=== PATIENT | male | born 1950 | race Caucasian/White ===

== ENCOUNTER 2024-02-01 12:50 | Inpatient (IN) | payer MEDICARE, OTHER ==
[~2024-02-01] VITALS: Ht 182.9 cm; Wt 99.8 kg
[~2024-02-01 12:50] MED LIST: ALLOPURINOL100 MG PO; AMIODARONE HCL200 MG PO; ASPIRIN325 MG PO; ATORVASTATIN CA20 MG PO; CARVEDILOL3.125 MG PO; FISH OIL 1,0001 EAC7; FUROSEMIDE40 MG PO; LEVOTHYROXINE100 MC1 IV; LOSARTAN POTASS25 MG PO; RAYALDEE30 MCG PO
[2024-02-01] MEDS ORDERED: SODIUM CHLORIDE FLUSH 10 ML SYR IV PRN (13:15)
[2024-02-01 14:09] VITALS: TEMP 98.1
[2024-02-01 14:17] LABS: BASOPHILS # (AUTO) 0.1 (0.0-0.1); BASOPHILS % 0.3 % (0.0-1.0); EOSINOPHILS % 2.7 % (0.0-6.0); HEMATOCRIT 33.5 % (38.2-49.6); LYMPHOCYTES # (AUTO) 1.7 (1.0-3.2); LYMPHOCYTES % 4.6 % (18.0-39.1); MEAN CORPUSCULAR HEMOGLOBIN 28.1 pg (28-32); MEAN CORPUSCULAR HGB CONC 32.8 g/dL (31-35); MEAN CORPUSCULAR VOLUME 85.5 fL (81-99); MONOCYTES # (AUTO) 0.1 (0.2-0.8); MONOCYTES % 0.3 % (4.4-11.3); NEUTROPHILS # (AUTO) 30.1 (2.1-6.9); NEUTROPHILS % 81.7 % (38.7-80.0); PLATELET COUNT 200 x10e3/uL (140-360); RED BLOOD COUNT 3.92 x10e6/uL (4.3-5.7); RED CELL DISTRIBUTION WIDTH 18.4 % (11.7-14.4); WHITE BLOOD COUNT 36.86 x10e3/uL (4.8-10.8)
[2024-02-01 14:30] LABS: ALBUMIN 2.3 g/dL (3.5-5.0); ALBUMIN/GLOBULIN RATIO 0.4 (0.8-2.0); ANION GAP 15.7 mmol/L (8-16); BILIRUBIN,TOTAL 0.8 mg/dL (0.2-1.2); CALCIUM 8.3 mg/dL (8.4-10.2); CREATININE, SERUM 0.91 mg/dL (0.72-1.25); POTASSIUM 3.7 mmol/L (3.5-5.1); TOTAL PROTEIN 7.9 g/dL (6.5-8.1)
[2024-02-01 14:36] LABS: TROPONIN I 0.145 ng/mL (0-0.300)
[2024-02-01 15:30] LABS: EOSINOPHILS % (MANUAL) 6 % (0-7); LYMPHOCYTES % (MANUAL) 3 % (19-48); MONOCYTES % (MANUAL) 1 % (3.4-9.0); NEUTROPHILS % (MANUAL) 90 % (40-74); PLATELET ESTIMATE ADEQUATE; PLATELET MORPHOLOGY COMMENT NORMAL; RBC MORPHOLOGY COMMENT NORMAL
[2024-02-01] MEDS ORDERED: IOPAMIDOL 370 MG/ML 100 ML INFUS..BTL INJ ONE (16:37)
[2024-02-01 16:53] VITALS: PULSE 71; RESP 16
[2024-02-01] MEDS ORDERED: ONDANSETRON HCL INJ 2MG/ML 2ML 2 MG/ML VIAL IV PRN (17:45)
[2024-02-01] MEDS ORDERED: SODIUM CHLORIDE FLUSH 10 ML SYR INJ PRN (17:45)
[2024-02-01] MEDS: CEFEPIME 2 GM in SODIUM CHLORIDE 0.9% 100 ML IV SCH (17:51)
[2024-02-01 19:53] VITALS: BP 100/47; O2SAT 94
[2024-02-01] MEDS ORDERED: FOLIC ACID0.4 MG PO (20:02)
[2024-02-01] MEDS ORDERED: IPRAT-ALBUT 0.5-3 ML (20:02)
[2024-02-01] MEDS ORDERED: ELIQUIS5 MG PO (20:02)
[2024-02-01] MEDS ORDERED: PANTOPRAZOLE SO40 MG PO (20:02)
[2024-02-01] MEDS ORDERED: Vancomycin IV 1 GM VIAL ONE (20:09)
[2024-02-01] MEDS: Vancomycin IV 1 GM in SODIUM CHLORIDE 0.9% 250ML 250 ML IV SCH (20:36)
[2024-02-01 21:05] VITALS: BP 107/59; PULSE 72; RESP 18; TEMP 97.8; O2SAT 93
[2024-02-02] VITALS (12 sets, daily range): BP systolic 109–120; BP diastolic 48–55; PULSE 69–77; RESP 18–22; TEMP 97.6–98.2; O2SAT 92–100
[2024-02-02] MEDS ORDERED: SILVADENE20 GM TOP (02:22)
[2024-02-02] MEDS ORDERED: FLANDERS BUTTOC30 GM TOP (02:22)
[2024-02-02 07:39] LABS: BASOPHILS % 0.1 % (0.0-1.0); EOSINOPHILS # (AUTO) 1.5 (0.0-0.4); EOSINOPHILS % 9.6 % (0.0-6.0); HEMATOCRIT 29.7 % (38.2-49.6); HEMOGLOBIN 9.2 g/dL (14.0-18.0); LYMPHOCYTES # (AUTO) 0.8 (1.0-3.2); MEAN CORPUSCULAR HEMOGLOBIN 27.3 pg (28-32); MEAN CORPUSCULAR VOLUME 88.1 fL (81-99); MONOCYTES # (AUTO) 0.1 (0.2-0.8); MONOCYTES % 0.6 % (4.4-11.3); NEUTROPHILS # (AUTO) 10.9 (2.1-6.9); NEUTROPHILS % 68.9 % (38.7-80.0); PLATELET COUNT 102 x10e3/uL (140-360); RED BLOOD COUNT 3.37 x10e6/uL (4.3-5.7); WHITE BLOOD COUNT 15.87 x10e3/uL (4.8-10.8)
[2024-02-02 08:01] LABS: ALBUMIN 1.8 g/dL (3.5-5.0); ALBUMIN/GLOBULIN RATIO 0.4 (0.8-2.0); ANION GAP 12.4 mmol/L (8-16); BILIRUBIN,TOTAL 0.8 mg/dL (0.2-1.2); CALCIUM 7.5 mg/dL (8.4-10.2); CREATININE, SERUM 0.85 mg/dL (0.72-1.25); TOTAL PROTEIN 6.3 g/dL (6.5-8.1)
[2024-02-02 08:05] LABS: POTASSIUM 3.4 mmol/L (3.5-5.1)
[2024-02-02] MEDS: Vancomycin IV 1 GM in SODIUM CHLORIDE 0.9% 250ML 250 ML IV SCH (09:02)
[2024-02-02 09:41] LABS: INR 1.26; PROTHROMBIN TIME 16.6 seconds (11.9-14.5)
[2024-02-02] MEDS: ALBUTEROL/IPRATROPIUM 3 ML NEB NEB SCH (13:00)
[2024-02-02] MEDS: ALLOPURINOL 100 MG TAB PO SCH (16:36)
[2024-02-02] MEDS: CARVEDILOL 3.125 MG TAB PO SCH (16:37)
[2024-02-02 16:46] LABS: WBC,BODY FLUID 540 cells/uL
[2024-02-02 16:47] LABS: RBC,BODY FLUID 4000 cells/uL
[2024-02-02 18:05] LABS: BODY FLUID APPEARANCE CLOUDY; BODY FLUID COLOR YELLOW; BODY FLUID TYPE PLEURAL
[2024-02-02 18:07] LABS: LYMPHOCYTES,BODY FLUID 90 %; MONO/MACROPHG,BODY FLUID 4 %; NEUTROPHILS,BODY FLUID 4 %; OTHER CELLS,BODY FLUID 2 %; TOTAL CELLS COUNTED (DIFF) 100
[2024-02-02] MEDS ORDERED: SODIUM CHLORIDE 0.9% 100 ML ONE (20:15)
[2024-02-02] MEDS: ATORVASTATIN 40 MG TAB PO SCH (21:02)
[2024-02-03] VITALS (11 sets, daily range): BP systolic 104–119; BP diastolic 52–63; PULSE 66–98; RESP 10–22; TEMP 97.3–98.1; O2SAT 94–98
[2024-02-03 05:39] LABS: ANION GAP 13.4 mmol/L (8-16); CALCIUM 7.4 mg/dL (8.4-10.2); CREATININE, SERUM 0.8 mg/dL (0.72-1.25)
[2024-02-03] MEDS: LEVOTHYROXINE SODIUM 100 MCG TAB PO SCH (05:42)
[2024-02-03 05:55] LABS: POTASSIUM 3.4 mmol/L (3.5-5.1)
[2024-02-03 06:43] LABS: BASOPHILS % 0.3 % (0.0-1.0); EOSINOPHILS # (AUTO) 1.3 (0.0-0.4); EOSINOPHILS % 21.4 % (0.0-6.0); HEMATOCRIT 27.8 % (38.2-49.6); LYMPHOCYTES # (AUTO) 0.5 (1.0-3.2); LYMPHOCYTES % 8.2 % (18.0-39.1); MEAN CORPUSCULAR HEMOGLOBIN 27.5 pg (28-32); MEAN CORPUSCULAR HGB CONC 31.3 g/dL (31-35); MONOCYTES # (AUTO) 0.1 (0.2-0.8); NEUTROPHILS # (AUTO) 2.3 (2.1-6.9); NEUTROPHILS % 37.1 % (38.7-80.0); RED BLOOD COUNT 3.16 x10e6/uL (4.3-5.7)
[2024-02-03 06:50] LABS: PLATELET COUNT 42 x10e3/uL (140-360)
[2024-02-03 06:51] LABS: HEMOGLOBIN 8.7 g/dL (14.0-18.0); WHITE BLOOD COUNT 6.07 x10e3/uL (4.8-10.8)
[2024-02-03] MEDS: AMIODARONE HCL 200 MG TAB PO SCH (08:56)
[2024-02-03 09:50] LABS: EOSINOPHILS % (MANUAL) 24 % (0-7); LYMPHOCYTES % (MANUAL) 7 % (19-48); MONOCYTES % (MANUAL) 2 % (3.4-9.0); NEUTROPHILS % (MANUAL) 67 % (40-74); PLATELET ESTIMATE MARKEDLY DECREASED; PLATELET MORPHOLOGY COMMENT NORMAL; RBC MORPHOLOGY COMMENT NORMAL
[2024-02-03 09:51] LABS: ANISOCYTOSIS SLIGHT; HYPOCHROMASIA SLIGHT
[2024-02-03 12:15] LABS: HEMATOCRIT 30.3 % (38.2-49.6); HEMOGLOBIN 9.5 g/dL (14.0-18.0); MEAN CORPUSCULAR HEMOGLOBIN 27.8 pg (28-32); MEAN CORPUSCULAR HGB CONC 31.4 g/dL (31-35); MEAN CORPUSCULAR VOLUME 88.6 fL (81-99); PLATELET COUNT 38 x10e3/uL (140-360); RED BLOOD COUNT 3.42 x10e6/uL (4.3-5.7); WHITE BLOOD COUNT 5.07 x10e3/uL (4.8-10.8)
[2024-02-03] MEDS: POTASSIUM CHLORIDE 10MEQ EA PO ONE (12:48)
[2024-02-03] MEDS ORDERED: ONDANSETRON HCL 4 MG ORAL DISINTEGRATING TAB PO PRN (13:30)
[2024-02-03 14:10] LABS: FERRITIN 2752.84 ng/mL (21.81-274.66)
[2024-02-03 16:23] LABS: BASOPHILS % (MANUAL) 1 % (0-1.5); EOSINOPHILS % (MANUAL) 27 % (0-7); LYMPHOCYTES % (MANUAL) 7 % (19-48); MONOCYTES % (MANUAL) 1 % (3.4-9.0); NEUTROPHILS % (MANUAL) 64 % (40-74)
[2024-02-03 16:24] LABS: ANISOCYTOSIS SLIGHT; HYPOCHROMASIA SLIGHT; PLATELET ESTIMATE MARKEDLY DECREASED; PLATELET MORPHOLOGY COMMENT NORMAL
[2024-02-03 16:26] LABS: RBC MORPHOLOGY COMMENT NORMAL
[2024-02-03] MEDS: METHYLPREDNISOLONE SOD SUCC 125 MG/2ML VIAL IV SCH (18:01)
[2024-02-03] MEDS: SACUBITRIL/VALSARTAN 24MG/26MG 1 EA TAB PO SCH (20:39)
[2024-02-03] MEDS: ALPRAZOLAM 0.25 MG TAB PO PRN (20:39)
[2024-02-04] VITALS (11 sets, daily range): BP systolic 96–114; BP diastolic 47–61; PULSE 67–100; RESP 15–25; TEMP 97.3–98.3; O2SAT 92–99
[2024-02-04 05:59] LABS: BASOPHILS % 0.6 % (0.0-1.0); EOSINOPHILS % 0.6 % (0.0-6.0); HEMOGLOBIN 8.6 g/dL (14.0-18.0); LYMPHOCYTES # (AUTO) 0.3 (1.0-3.2); LYMPHOCYTES % 15.6 % (18.0-39.1); MEAN CORPUSCULAR HEMOGLOBIN 27.3 pg (28-32); MEAN CORPUSCULAR HGB CONC 30.7 g/dL (31-35); MEAN CORPUSCULAR VOLUME 88.9 fL (81-99); MONOCYTES % 1.7 % (4.4-11.3); NEUTROPHILS # (AUTO) 0.4 (2.1-6.9); NEUTROPHILS % 19.3 % (38.7-80.0); RED BLOOD COUNT 3.15 x10e6/uL (4.3-5.7); RED CELL DISTRIBUTION WIDTH 17.8 % (11.7-14.4)
[2024-02-04 06:32] LABS: PLATELET COUNT 23 x10e3/uL (140-360)
[2024-02-04 06:42] LABS: ANION GAP 12.1 mmol/L (8-16); CALCIUM 7.7 mg/dL (8.4-10.2); CREATININE, SERUM 0.77 mg/dL (0.72-1.25); POTASSIUM 4.1 mmol/L (3.5-5.1)
[2024-02-04 09:13] LABS: HEPATITIS B SURFACE AG (P) NONREACTIVE; HEPATITIS C ANTIBODY NONREACTIVE
[2024-02-04] MEDS: EPOETIN ALFA-EPBX 10,000 UNIT/ML VIAL SC ONE (11:51)
[2024-02-05] VITALS (15 sets, daily range): BP systolic 98–172; BP diastolic 44–71; PULSE 68–115; RESP 17–23; TEMP 97.3–98.1; O2SAT 88–100
[2024-02-05 11:00] LABS: BASOPHILS % 0.5 % (0.0-1.0); EOSINOPHILS # (AUTO) 0.1 (0.0-0.4); EOSINOPHILS % 4.3 % (0.0-6.0); HEMATOCRIT 28.1 % (38.2-49.6); HEMOGLOBIN 8.8 g/dL (14.0-18.0); LYMPHOCYTES # (AUTO) 0.5 (1.0-3.2); LYMPHOCYTES % 25.1 % (18.0-39.1); MEAN CORPUSCULAR HEMOGLOBIN 27.8 pg (28-32); MEAN CORPUSCULAR HGB CONC 31.3 g/dL (31-35); MEAN CORPUSCULAR VOLUME 88.9 fL (81-99); MONOCYTES # (AUTO) 0.1 (0.2-0.8); MONOCYTES % 4.3 % (4.4-11.3); NEUTROPHILS # (AUTO) 1.2 (2.1-6.9); NEUTROPHILS % 57.6 % (38.7-80.0); RED BLOOD COUNT 3.16 x10e6/uL (4.3-5.7); RED CELL DISTRIBUTION WIDTH 17.9 % (11.7-14.4); WHITE BLOOD COUNT 2.07 x10e3/uL (4.8-10.8)
[2024-02-05 11:03] LABS: PLATELET COUNT 12 x10e3/uL (140-360)
[2024-02-05 12:58] LABS: EOSINOPHILS % (MANUAL) 1 % (0-7); LYMPHOCYTES % (MANUAL) 65 % (19-48); NEUTROPHILS % (MANUAL) 34 % (40-74)
[2024-02-05 12:59] LABS: PLATELET ESTIMATE MARKEDLY DECREASED; PLATELET MORPHOLOGY COMMENT NORMAL; RBC MORPHOLOGY COMMENT NORMAL
[2024-02-05 19:27] LABS: ABG HCO3 20 mmol/L (22-26); ABG PCO2 42 mmHg (35-45); ABG PH 7.28 (7.35-7.45); ABG PO2 125 mmHg (80-105); ABG TCO2 21
[2024-02-05] MEDS: FUROSEMIDE INJ 10 MG/ML 4 ML VIAL IV ONE (19:50)
[2024-02-06] VITALS (39 sets, daily range): BP systolic 95–126; BP diastolic 47–96; PULSE 64–85; RESP 16–33; TEMP 97.5–98.3; O2SAT 87–100
[2024-02-06 07:16] LABS: EOSINOPHILS % 0.9 % (0.0-6.0); HEMATOCRIT 25.1 % (38.2-49.6); HEMOGLOBIN 7.7 g/dL (14.0-18.0); LYMPHOCYTES # (AUTO) 0.9 (1.0-3.2); LYMPHOCYTES % 37.9 % (18.0-39.1); MEAN CORPUSCULAR HGB CONC 30.7 g/dL (31-35); MEAN CORPUSCULAR VOLUME 88.1 fL (81-99); MONOCYTES # (AUTO) 0.2 (0.2-0.8); MONOCYTES % 8.5 % (4.4-11.3); NEUTROPHILS % 41.2 % (38.7-80.0); PLATELET COUNT 37 x10e3/uL (140-360); RED BLOOD COUNT 2.85 x10e6/uL (4.3-5.7); RED CELL DISTRIBUTION WIDTH 17.4 % (11.7-14.4); WHITE BLOOD COUNT 2.35 x10e3/uL (4.8-10.8)
[2024-02-06 07:28] LABS: ALBUMIN 1.7 g/dL (3.5-5.0); ALBUMIN/GLOBULIN RATIO 0.4 (0.8-2.0); ANION GAP 11.6 mmol/L (8-16); BILIRUBIN,TOTAL 0.7 mg/dL (0.2-1.2); CALCIUM 7.5 mg/dL (8.4-10.2); CREATININE, SERUM 0.79 mg/dL (0.72-1.25); POTASSIUM 3.6 mmol/L (3.5-5.1); TOTAL PROTEIN 5.7 g/dL (6.5-8.1)
[2024-02-06] MEDS: GUAIFENESIN 600 MG TAB PO PRN (09:42)
[2024-02-06] MEDS: BALSAM PERU/CASTOR OIL 60 GM OINT...G. TP SCH (09:44)
[2024-02-06] MEDS: FUROSEMIDE INJ 10 MG/ML 4 ML VIAL IV SCH (09:45)
[2024-02-06 09:50] LABS: EOSINOPHILS % (MANUAL) 1 % (0-7); LYMPHOCYTES % (MANUAL) 31 % (19-48); MONOCYTES % (MANUAL) 9 % (3.4-9.0); NEUTROPHILS % (MANUAL) 59 % (40-74)
[2024-02-06 09:51] LABS: HYPOCHROMASIA SLIGHT; PLATELET ESTIMATE MARKEDLY DECREASED; PLATELET MORPHOLOGY COMMENT NORMAL; RBC MORPHOLOGY COMMENT NORMAL
[2024-02-06 09:53] LABS: TOXIC GRANULATION MODERATE
[2024-02-06 10:54] LABS: TOTAL PROTEIN,BODY FLUID 3.1 g/dL
[2024-02-06] MEDS: FILGRASTIM-AAFI 480 MCG/0.8 ML SYRINGE SQ ONE (13:33)
[2024-02-07] VITALS (35 sets, daily range): BP systolic 94–118; BP diastolic 43–64; PULSE 65–86; RESP 15–31; TEMP 97.8–98.2; O2SAT 93–100
[2024-02-07 08:36] LABS: BASOPHILS % 0.7 % (0.0-1.0); EOSINOPHILS # (AUTO) 0.1 (0.0-0.4); EOSINOPHILS % 1.3 % (0.0-6.0); HEMOGLOBIN 8.5 g/dL (14.0-18.0); LYMPHOCYTES # (AUTO) 1.1 (1.0-3.2); LYMPHOCYTES % 24.7 % (18.0-39.1); MEAN CORPUSCULAR HEMOGLOBIN 27.3 pg (28-32); MEAN CORPUSCULAR HGB CONC 31.5 g/dL (31-35); MEAN CORPUSCULAR VOLUME 86.8 fL (81-99); MONOCYTES # (AUTO) 0.4 (0.2-0.8); MONOCYTES % 7.8 % (4.4-11.3); NEUTROPHILS # (AUTO) 2.8 (2.1-6.9); NEUTROPHILS % 63.7 % (38.7-80.0); RED BLOOD COUNT 3.11 x10e6/uL (4.3-5.7); RED CELL DISTRIBUTION WIDTH 17.8 % (11.7-14.4); WHITE BLOOD COUNT 4.46 x10e3/uL (4.8-10.8)
[2024-02-07 08:44] LABS: PLATELET COUNT 14 x10e3/uL (140-360)
[2024-02-07] MEDS: PREDNISONE 20 MG TAB PO SCH (08:57)
[2024-02-07 09:01] LABS: ALBUMIN 1.9 g/dL (3.5-5.0); ALBUMIN/GLOBULIN RATIO 0.5 (0.8-2.0); ANION GAP 14.3 mmol/L (8-16); BILIRUBIN,TOTAL 0.9 mg/dL (0.2-1.2); CALCIUM 7.9 mg/dL (8.4-10.2); CREATININE, SERUM 0.72 mg/dL (0.72-1.25); TOTAL PROTEIN 5.8 g/dL (6.5-8.1)
[2024-02-07 09:06] LABS: POTASSIUM 3.3 mmol/L (3.5-5.1)
[2024-02-07] MEDS: POTASSIUM CHLORIDE 20MEQ/100ML 200 ML IV ONE (10:31)
[2024-02-07 12:08] LABS: EOSINOPHILS % (MANUAL) 2 % (0-7); LYMPHOCYTES % (MANUAL) 39 % (19-48); MONOCYTES % (MANUAL) 9 % (3.4-9.0); NEUTROPHILS % (MANUAL) 50 % (40-74); PLATELET ESTIMATE MARKEDLY DECREASED; PLATELET MORPHOLOGY COMMENT NORMAL; RBC MORPHOLOGY COMMENT NORMAL
[2024-02-08] VITALS (37 sets, daily range): BP systolic 96–126; BP diastolic 47–73; PULSE 64–89; RESP 15–28; TEMP 97–98.4; O2SAT 90–100
[2024-02-08 06:55] LABS: BASOPHILS % 0.4 % (0.0-1.0); EOSINOPHILS # (AUTO) 0.3 (0.0-0.4); EOSINOPHILS % 4.9 % (0.0-6.0); HEMATOCRIT 23.7 % (38.2-49.6); HEMOGLOBIN 7.7 g/dL (14.0-18.0); LYMPHOCYTES # (AUTO) 1.4 (1.0-3.2); LYMPHOCYTES % 20.8 % (18.0-39.1); MEAN CORPUSCULAR HEMOGLOBIN 28.2 pg (28-32); MEAN CORPUSCULAR HGB CONC 32.5 g/dL (31-35); MEAN CORPUSCULAR VOLUME 86.8 fL (81-99); MONOCYTES # (AUTO) 0.3 (0.2-0.8); MONOCYTES % 3.9 % (4.4-11.3); NEUTROPHILS # (AUTO) 4.7 (2.1-6.9); NEUTROPHILS % 68.7 % (38.7-80.0); RED BLOOD COUNT 2.73 x10e6/uL (4.3-5.7); RED CELL DISTRIBUTION WIDTH 17.7 % (11.7-14.4); WHITE BLOOD COUNT 6.88 x10e3/uL (4.8-10.8)
[2024-02-08 07:01] LABS: PLATELET COUNT 23 x10e3/uL (140-360)
[2024-02-08 07:17] LABS: ALBUMIN 1.8 g/dL (3.5-5.0); ALBUMIN/GLOBULIN RATIO 0.5 (0.8-2.0); ANION GAP 12.5 mmol/L (8-16); BILIRUBIN,TOTAL 0.8 mg/dL (0.2-1.2); CALCIUM 7.8 mg/dL (8.4-10.2); CREATININE, SERUM 0.64 mg/dL (0.72-1.25); POTASSIUM 3.5 mmol/L (3.5-5.1); TOTAL PROTEIN 5.7 g/dL (6.5-8.1)
[2024-02-08] MEDS: FUROSEMIDE INJ 10 MG/ML 4 ML VIAL IV SCH (10:01)
[2024-02-08] MEDS ORDERED: SUCCINYLCHOLINE CHLORIDE 20 MG/ML 10ML VIAL ONE (12:33)
[2024-02-08] MEDS ORDERED: ETOMIDATE 2 MG/ML 10 ML INJ IV ONE (12:33)
[2024-02-08] MEDS ORDERED: SODIUM CHLORIDE 0.9% 250ML 250 ML ONE (13:52)
[2024-02-08 14:00] LABS: BAND NEUTROPHILS % (MANUAL) 5 %; EOSINOPHILS % (MANUAL) 3 % (0-7); LYMPHOCYTES % (MANUAL) 29 % (19-48); MONOCYTES % (MANUAL) 3 % (3.4-9.0); NEUTROPHILS % (MANUAL) 58 % (40-74); PLATELET MORPHOLOGY COMMENT NORMAL; REACTIVE LYMPHOCYTES 2
[2024-02-08 14:01] LABS: PLATELET ESTIMATE MARKEDLY DECREASED
[2024-02-08 14:02] LABS: HYPOCHROMASIA SLIGHT; RBC MORPHOLOGY COMMENT NORMAL
[2024-02-08 14:03] LABS: ANISOCYTOSIS SLIGHT
[2024-02-08] MEDS: FUROSEMIDE INJ 10 MG/ML 2 ML VIAL IV PRN (16:55)
[2024-02-08] MEDS: SODIUM CHLORIDE 0.9% 250ML 250 ML ONE (17:46)
[2024-02-08] MEDS: SODIUM CHLORIDE 0.9% 250ML 250 ML IV ONE (17:47)
[2024-02-08] MEDS: GUAIFENESIN/CODEINE 5 ML LIQD PO PRN (20:31)
[2024-02-09] VITALS (67 sets, daily range): BP systolic 82–163; BP diastolic 30–87; PULSE 62–105; RESP 15–34; TEMP 97.9–98.7; O2SAT 82–100
[2024-02-09] MEDS: ALBUTEROL/IPRATROPIUM 3 ML NEB NEB PRN (04:50)
[2024-02-09] MEDS: FUROSEMIDE INJ 10 MG/ML 4 ML VIAL IV ONE (05:10)
[2024-02-09 05:32] LABS: BASOPHILS # (AUTO) 0.1 (0.0-0.1); BASOPHILS % 0.5 % (0.0-1.0); EOSINOPHILS # (AUTO) 1.3 (0.0-0.4); EOSINOPHILS % 7.4 % (0.0-6.0); HEMATOCRIT 30.2 % (38.2-49.6); HEMOGLOBIN 9.7 g/dL (14.0-18.0); LYMPHOCYTES # (AUTO) 5.3 (1.0-3.2); LYMPHOCYTES % 29.7 % (18.0-39.1); MEAN CORPUSCULAR HEMOGLOBIN 28.3 pg (28-32); MEAN CORPUSCULAR HGB CONC 32.1 g/dL (31-35); MONOCYTES # (AUTO) 0.6 (0.2-0.8); MONOCYTES % 3.3 % (4.4-11.3); NEUTROPHILS % 56.4 % (38.7-80.0); PLATELET COUNT 17 x10e3/uL (140-360); RED BLOOD COUNT 3.43 x10e6/uL (4.3-5.7); RED CELL DISTRIBUTION WIDTH 17.2 % (11.7-14.4); WHITE BLOOD COUNT 17.67 x10e3/uL (4.8-10.8)
[2024-02-09] MEDS: HYDROCODONE/APAP 10MG-325MG TAB PO PRN (05:45)
[2024-02-09 05:49] LABS: ALBUMIN 1.9 g/dL (3.5-5.0); ALBUMIN/GLOBULIN RATIO 0.4 (0.8-2.0); ANION GAP 14.7 mmol/L (8-16); CALCIUM 7.9 mg/dL (8.4-10.2); CREATININE, SERUM 0.82 mg/dL (0.72-1.25); POTASSIUM 3.7 mmol/L (3.5-5.1); TOTAL PROTEIN 6.2 g/dL (6.5-8.1)
[2024-02-09 06:07] LABS: ABG HCO3 27 mmol/L (22-26); ABG PCO2 53 mmHg (35-45); ABG PH 7.31 (7.35-7.45); ABG PO2 45 mmHg (80-105); ABG TCO2 29
[2024-02-09 06:26] LABS: BAND NEUTROPHILS % (MANUAL) 1 %; EOSINOPHILS % (MANUAL) 5 % (0-7); LYMPHOCYTES % (MANUAL) 34 % (19-48); METAMYELOCYTES % (MANUAL) 2 % (0-0); MONOCYTES % (MANUAL) 1 % (3.4-9.0); NEUTROPHILS % (MANUAL) 57 % (40-74)
[2024-02-09 06:27] LABS: ANISOCYTOSIS SLIGHT; PLATELET ESTIMATE MARKEDLY DECREASED; PLATELET MORPHOLOGY COMMENT NORMAL; RBC MORPHOLOGY COMMENT NORMAL; TOXIC GRANULATION SLIGHT
[2024-02-09] MEDS: PROPOFOL IV EMULSION 10MG/ML 100 ML IV PRN (06:40)
[2024-02-09] MEDS: LORAZEPAM INJ 2 MG/ML VIAL IV ONE (08:17)
[2024-02-09 09:36] LABS: ABG HCO3 29 mmol/L (22-26); ABG PCO2 50 mmHg (35-45); ABG PH 7.37 (7.35-7.45); ABG PO2 126 mmHg (80-105); ABG TCO2 30
[2024-02-09] MEDS: ALBUMIN 25% 25GM 100ML 0.25 GM/ML BTL IV ONE (10:02)
[2024-02-09] MEDS: SODIUM CHLORIDE 0.9% 500ML 500 ML ONE (10:47)
[2024-02-09] MEDS: NOREPINEPHRINE 8 MG/D5W 250 ML 250 ML IV ONE (10:57)
[2024-02-09] MEDS: LACTATED RINGER'S 1,000 ML INJ ONE (16:08)
[2024-02-09] MEDS: NOREPINEPHRINE 8 MG/D5W 250 ML 250 ML IV PRN (16:09)
[2024-02-10] VITALS (94 sets, daily range): BP systolic 103–156; BP diastolic 31–86; PULSE 58–101; RESP 12–32; TEMP 97.1–97.8; O2SAT 97–100
[2024-02-10 07:05] LABS: BASOPHILS % 0.2 % (0.0-1.0); EOSINOPHILS # (AUTO) 1.8 (0.0-0.4); EOSINOPHILS % 11.2 % (0.0-6.0); HEMATOCRIT 24.5 % (38.2-49.6); LYMPHOCYTES # (AUTO) 1.7 (1.0-3.2); LYMPHOCYTES % 10.5 % (18.0-39.1); MEAN CORPUSCULAR HEMOGLOBIN 28.5 pg (28-32); MEAN CORPUSCULAR HGB CONC 31.8 g/dL (31-35); MEAN CORPUSCULAR VOLUME 89.4 fL (81-99); MONOCYTES # (AUTO) 0.7 (0.2-0.8); MONOCYTES % 4.2 % (4.4-11.3); NEUTROPHILS # (AUTO) 11.4 (2.1-6.9); NEUTROPHILS % 71.1 % (38.7-80.0); PLATELET COUNT 12 x10e3/uL (140-360); RED BLOOD COUNT 2.74 x10e6/uL (4.3-5.7); RED CELL DISTRIBUTION WIDTH 17.7 % (11.7-14.4); WHITE BLOOD COUNT 16.01 x10e3/uL (4.8-10.8)
[2024-02-10 07:15] LABS: HEMOGLOBIN 7.8 g/dL (14.0-18.0)
[2024-02-10 07:31] LABS: ALBUMIN 1.9 g/dL (3.5-5.0); ALBUMIN/GLOBULIN RATIO 0.5 (0.8-2.0); ANION GAP 12.4 mmol/L (8-16); BILIRUBIN,TOTAL 1.1 mg/dL (0.2-1.2); CALCIUM 7.7 mg/dL (8.4-10.2); CREATININE, SERUM 0.81 mg/dL (0.72-1.25); TOTAL PROTEIN 5.4 g/dL (6.5-8.1)
[2024-02-10 07:32] LABS: POTASSIUM 3.4 mmol/L (3.5-5.1)
[2024-02-10] MEDS: METHYLPREDNISOLONE SOD SUCC 40 MG/ML VIAL 1ML IV SCH ×2 (08:47→20:08)
[2024-02-10 09:41] LABS: EOSINOPHILS % (MANUAL) 8 % (0-7); LYMPHOCYTES % (MANUAL) 6 % (19-48); METAMYELOCYTES % (MANUAL) 1 % (0-0); MONOCYTES % (MANUAL) 5 % (3.4-9.0); MYELOCYTES % (MANUAL) 2 % (0-0); NEUTROPHILS % (MANUAL) 78 % (40-74)
[2024-02-10 09:42] LABS: PLATELET ESTIMATE MARKEDLY DECREASED; PLATELET MORPHOLOGY COMMENT NORMAL; RBC MORPHOLOGY COMMENT NORMAL; TOXIC GRANULATION SLIGHT
[2024-02-10] MEDS: FENTANYL 2000MCG/NS 250 250 ML IV PRN (10:49)
[2024-02-10 10:53] LABS: ABG HCO3 31 mmol/L (22-26); ABG PCO2 52 mmHg (35-45); ABG PH 7.38 (7.35-7.45); ABG PO2 191 mmHg (80-105); ABG TCO2 33
[2024-02-10 17:09] LABS: BASOPHILS % 0.3 % (0.0-1.0); EOSINOPHILS % 0.3 % (0.0-6.0); HEMOGLOBIN 7.6 g/dL (14.0-18.0); LYMPHOCYTES # (AUTO) 0.7 (1.0-3.2); MEAN CORPUSCULAR HEMOGLOBIN 28.4 pg (28-32); MEAN CORPUSCULAR HGB CONC 31.7 g/dL (31-35); MEAN CORPUSCULAR VOLUME 89.6 fL (81-99); MONOCYTES # (AUTO) 0.3 (0.2-0.8); MONOCYTES % 2.6 % (4.4-11.3); NEUTROPHILS # (AUTO) 10.5 (2.1-6.9); NEUTROPHILS % 88.4 % (38.7-80.0); PLATELET COUNT 50 x10e3/uL (140-360); RED BLOOD COUNT 2.68 x10e6/uL (4.3-5.7); RED CELL DISTRIBUTION WIDTH 18.4 % (11.7-14.4); WHITE BLOOD COUNT 11.88 x10e3/uL (4.8-10.8)
[2024-02-10 17:23] LABS: CREATININE, SERUM 0.88 mg/dL (0.72-1.25)
[2024-02-10 17:30] LABS: CALCIUM IONIZED 1.1 mmol/L (1.09-1.30)
[2024-02-10 17:33] LABS: MAGNESIUM 1.9 MG/DL (1.3-2.1)
[2024-02-11] VITALS (90 sets, daily range): BP systolic 96–157; BP diastolic 34–60; PULSE 58–93; RESP 18–30; TEMP 97.6–98.2; O2SAT 99–100
[2024-02-11 06:38] LABS: BASOPHILS % 0.3 % (0.0-1.0); EOSINOPHILS % 0.1 % (0.0-6.0); HEMATOCRIT 24.1 % (38.2-49.6); HEMOGLOBIN 7.6 g/dL (14.0-18.0); LYMPHOCYTES # (AUTO) 0.8 (1.0-3.2); LYMPHOCYTES % 6.8 % (18.0-39.1); MEAN CORPUSCULAR HEMOGLOBIN 27.9 pg (28-32); MEAN CORPUSCULAR HGB CONC 31.5 g/dL (31-35); MEAN CORPUSCULAR VOLUME 88.6 fL (81-99); MONOCYTES # (AUTO) 0.5 (0.2-0.8); MONOCYTES % 3.8 % (4.4-11.3); NEUTROPHILS # (AUTO) 10.3 (2.1-6.9); NEUTROPHILS % 87.3 % (38.7-80.0); PLATELET COUNT 35 x10e3/uL (140-360); RED BLOOD COUNT 2.72 x10e6/uL (4.3-5.7); RED CELL DISTRIBUTION WIDTH 18.4 % (11.7-14.4); WHITE BLOOD COUNT 11.84 x10e3/uL (4.8-10.8)
[2024-02-11 06:58] LABS: ALBUMIN 1.9 g/dL (3.5-5.0); ALBUMIN/GLOBULIN RATIO 0.5 (0.8-2.0); ANION GAP 12.7 mmol/L (8-16); BILIRUBIN,TOTAL 0.8 mg/dL (0.2-1.2); CREATININE, SERUM 0.81 mg/dL (0.72-1.25); POTASSIUM 3.7 mmol/L (3.5-5.1); TOTAL PROTEIN 5.8 g/dL (6.5-8.1)
[2024-02-11 08:13] LABS: ABG PCO2 40 mmHg (35-45); ABG PH 7.47 (7.35-7.45)
[2024-02-11 08:14] LABS: ABG HCO3 29 mmol/L (22-26); ABG PO2 218 mmHg (80-105); ABG TCO2 31
[2024-02-11 16:19] LABS: ABG HCO3 27 mmol/L (22-26); ABG PCO2 38 mmHg (35-45); ABG PH 7.47 (7.35-7.45); ABG PO2 125 mmHg (80-105); ABG TCO2 29
[2024-02-11] MEDS ORDERED: SUCCINYLCHOLINE CHLORIDE 20 MG/ML 10ML VIAL ONE (16:39)
[2024-02-11] MEDS ORDERED: ETOMIDATE 2 MG/ML 10 ML INJ IV ONE (16:39)
[2024-02-12] VITALS (68 sets, daily range): BP systolic 95–159; BP diastolic 31–58; PULSE 59–118; RESP 12–35; TEMP 97.9–99.3; O2SAT 89–100
[2024-02-12 06:55] LABS: BASOPHILS % 0.2 % (0.0-1.0); EOSINOPHILS % 0.3 % (0.0-6.0); HEMATOCRIT 23.4 % (38.2-49.6); HEMOGLOBIN 7.4 g/dL (14.0-18.0); LYMPHOCYTES # (AUTO) 0.7 (1.0-3.2); LYMPHOCYTES % 6.5 % (18.0-39.1); MEAN CORPUSCULAR HEMOGLOBIN 28.7 pg (28-32); MEAN CORPUSCULAR HGB CONC 31.6 g/dL (31-35); MEAN CORPUSCULAR VOLUME 90.7 fL (81-99); MONOCYTES # (AUTO) 0.3 (0.2-0.8); MONOCYTES % 3.1 % (4.4-11.3); NEUTROPHILS # (AUTO) 9.3 (2.1-6.9); NEUTROPHILS % 88.2 % (38.7-80.0); PLATELET COUNT 24 x10e3/uL (140-360); RED BLOOD COUNT 2.58 x10e6/uL (4.3-5.7); RED CELL DISTRIBUTION WIDTH 19.3 % (11.7-14.4); WHITE BLOOD COUNT 10.48 x10e3/uL (4.8-10.8)
[2024-02-12 07:14] LABS: ALBUMIN 1.8 g/dL (3.5-5.0); ALBUMIN/GLOBULIN RATIO 0.5 (0.8-2.0); ANION GAP 13.2 mmol/L (8-16); BILIRUBIN,TOTAL 0.6 mg/dL (0.2-1.2); CALCIUM 7.7 mg/dL (8.4-10.2); CREATININE, SERUM 0.75 mg/dL (0.72-1.25); POTASSIUM 4.2 mmol/L (3.5-5.1); TOTAL PROTEIN 5.6 g/dL (6.5-8.1)
[2024-02-12 08:49] LABS: ANISOCYTOSIS MODERATE; BAND NEUTROPHILS % (MANUAL) 1 %; HYPOCHROMASIA MODERATE; LYMPHOCYTES % (MANUAL) 3 % (19-48); MONOCYTES % (MANUAL) 4 % (3.4-9.0); NEUTROPHILS % (MANUAL) 92 % (40-74); PLATELET ESTIMATE MARKEDLY DECREASED; PLATELET MORPHOLOGY COMMENT NORMAL; RBC MORPHOLOGY COMMENT ABNORMAL; TOXIC GRANULATION MODERATE
[2024-02-12 09:20] LABS: ABG HCO3 27 mmol/L (22-26); ABG PCO2 35 mmHg (35-45); ABG PO2 56 mmHg (80-105); ABG TCO2 28
[2024-02-12] MEDS: DEXMEDETOMIDINE 400MCG/NS100ML 100 ML IV PRN (13:22)
[2024-02-12 15:33] LABS: ABG HCO3 29 mmol/L (22-26); ABG PCO2 44 mmHg (35-45); ABG PH 7.43 (7.35-7.45); ABG PO2 162 mmHg (80-105); ABG TCO2 30
[2024-02-13] VITALS (70 sets, daily range): BP systolic 93–181; BP diastolic 36–73; PULSE 58–108; RESP 15–38; TEMP 97.9–98.3; O2SAT 48–100
[2024-02-13 06:47] LABS: BASOPHILS % 0.2 % (0.0-1.0); EOSINOPHILS # (AUTO) 0.4 (0.0-0.4); EOSINOPHILS % 2.9 % (0.0-6.0); HEMATOCRIT 24.3 % (38.2-49.6); HEMOGLOBIN 7.4 g/dL (14.0-18.0); LYMPHOCYTES # (AUTO) 0.9 (1.0-3.2); LYMPHOCYTES % 6.8 % (18.0-39.1); MEAN CORPUSCULAR HEMOGLOBIN 28.1 pg (28-32); MEAN CORPUSCULAR HGB CONC 30.5 g/dL (31-35); MEAN CORPUSCULAR VOLUME 92.4 fL (81-99); MONOCYTES # (AUTO) 0.4 (0.2-0.8); NEUTROPHILS # (AUTO) 11.4 (2.1-6.9); NEUTROPHILS % 85.7 % (38.7-80.0); RED BLOOD COUNT 2.63 x10e6/uL (4.3-5.7); RED CELL DISTRIBUTION WIDTH 19.6 % (11.7-14.4); WHITE BLOOD COUNT 13.26 x10e3/uL (4.8-10.8)
[2024-02-13 06:55] LABS: PLATELET COUNT 46 x10e3/uL (140-360)
[2024-02-13 07:08] LABS: ALBUMIN 1.8 g/dL (3.5-5.0); ALBUMIN/GLOBULIN RATIO 0.5 (0.8-2.0); ANION GAP 13.9 mmol/L (8-16); BILIRUBIN,TOTAL 0.9 mg/dL (0.2-1.2); CALCIUM 7.8 mg/dL (8.4-10.2); CREATININE, SERUM 0.77 mg/dL (0.72-1.25); POTASSIUM 3.9 mmol/L (3.5-5.1); TOTAL PROTEIN 5.6 g/dL (6.5-8.1)
[2024-02-13] MEDS: METHYLPREDNISOLONE SOD SUCC 40 MG/ML VIAL 1ML IV SCH ×2 (08:45→12:15)
[2024-02-13] MEDS: FENTANYL 2000MCG/NS 250 250 ML ONE (09:11)
[2024-02-13] MEDS: DEXTROSE 5% 1,000 ML IV ONE (09:23)
[2024-02-13 09:27] LABS: ABG HCO3 29 mmol/L (22-26); ABG PCO2 41 mmHg (35-45); ABG PH 7.45 (7.35-7.45); ABG PO2 63 mmHg (80-105); ABG TCO2 30
[2024-02-13] MEDS: PROPOFOL IV EMULSION 10MG/ML 100 ML IV PRN (11:45)
[2024-02-13 12:01] LABS: EOSINOPHILS % (MANUAL) 4 % (0-7); LYMPHOCYTES % (MANUAL) 9 % (19-48); MONOCYTES % (MANUAL) 1 % (3.4-9.0); NEUTROPHILS % (MANUAL) 86 % (40-74); PLATELET ESTIMATE MODERATELY DECREASED; PLATELET MORPHOLOGY COMMENT NORMAL; RBC MORPHOLOGY COMMENT NORMAL
[2024-02-13 13:32] LABS: ABG PH 7.37 (7.35-7.45)
[2024-02-13 13:33] LABS: ABG HCO3 29 mmol/L (22-26); ABG PCO2 52 mmHg (35-45); ABG PO2 134 mmHg (80-105); ABG TCO2 31
[2024-02-13] MEDS: PERIPHERAL TPN FORMULA 1 BAG IV SCH (20:39)
[2024-02-14] VITALS (98 sets, daily range): BP systolic 94–144; BP diastolic 29–57; PULSE 59–92; RESP 15–26; TEMP 97.9–98.8; O2SAT 87–100
[2024-02-14 06:44] LABS: BASOPHILS % 0.3 % (0.0-1.0); EOSINOPHILS # (AUTO) 0.1 (0.0-0.4); EOSINOPHILS % 1.1 % (0.0-6.0); HEMATOCRIT 28.7 % (38.2-49.6); HEMOGLOBIN 8.4 g/dL (14.0-18.0); LYMPHOCYTES # (AUTO) 0.4 (1.0-3.2); LYMPHOCYTES % 4.3 % (18.0-39.1); MEAN CORPUSCULAR HEMOGLOBIN 28.3 pg (28-32); MEAN CORPUSCULAR HGB CONC 29.3 g/dL (31-35); MEAN CORPUSCULAR VOLUME 96.6 fL (81-99); MONOCYTES # (AUTO) 0.6 (0.2-0.8); MONOCYTES % 5.7 % (4.4-11.3); NEUTROPHILS # (AUTO) 9.1 (2.1-6.9); NEUTROPHILS % 88.2 % (38.7-80.0); PLATELET COUNT 163 x10e3/uL (140-360); RED BLOOD COUNT 2.97 x10e6/uL (4.3-5.7); RED CELL DISTRIBUTION WIDTH 14.5 % (11.7-14.4); WHITE BLOOD COUNT 10.34 x10e3/uL (4.8-10.8)
[2024-02-14 07:44] LABS: ALBUMIN 1.6 g/dL (3.5-5.0); ALBUMIN/GLOBULIN RATIO 0.4 (0.8-2.0); ANION GAP 14.2 mmol/L (8-16); BILIRUBIN,TOTAL 0.7 mg/dL (0.2-1.2); CALCIUM 7.2 mg/dL (8.4-10.2); CREATININE, SERUM 0.73 mg/dL (0.72-1.25); POTASSIUM 4.2 mmol/L (3.5-5.1); TOTAL PROTEIN 5.5 g/dL (6.5-8.1)
[2024-02-14 10:57] LABS: ABG HCO3 28 mmol/L (22-26); ABG PCO2 35 mmHg (35-45); ABG PH 7.52 (7.35-7.45); ABG PO2 154 mmHg (80-105); ABG TCO2 29
[2024-02-14] MEDS: FENTANYL 2000MCG/NS 250 250 ML IV PRN (11:52)
[2024-02-14 14:56] LABS: ABG PH 7.37 (7.35-7.45)
[2024-02-14 14:57] LABS: ABG HCO3 28 mmol/L (22-26); ABG PCO2 49 mmHg (35-45); ABG PO2 97 mmHg (80-105); ABG TCO2 30
[2024-02-14] MEDS: SODIUM CHLORIDE 0.9% 1000ML 1,000 ML ONE (17:05)
[2024-02-14] MEDS: PERIPHERAL TPN FORMULA 1 BAG IV SCH (20:54)
[2024-02-15] VITALS (95 sets, daily range): BP systolic 101–151; BP diastolic 30–72; PULSE 25–95; RESP 16–33; TEMP 97.8–98.2; O2SAT 75–100
[2024-02-15 06:41] LABS: BASOPHILS % 0.2 % (0.0-1.0); EOSINOPHILS # (AUTO) 0.1 (0.0-0.4); EOSINOPHILS % 0.5 % (0.0-6.0); HEMATOCRIT 22.9 % (38.2-49.6); HEMOGLOBIN 7.1 g/dL (14.0-18.0); LYMPHOCYTES # (AUTO) 1.4 (1.0-3.2); LYMPHOCYTES % 5.5 % (18.0-39.1); MEAN CORPUSCULAR HEMOGLOBIN 29.1 pg (28-32); MEAN CORPUSCULAR VOLUME 93.9 fL (81-99); MONOCYTES # (AUTO) 0.7 (0.2-0.8); MONOCYTES % 2.8 % (4.4-11.3); NEUTROPHILS # (AUTO) 22.2 (2.1-6.9); NEUTROPHILS % 87.5 % (38.7-80.0); PLATELET COUNT 80 x10e3/uL (140-360); RED BLOOD COUNT 2.44 x10e6/uL (4.3-5.7); RED CELL DISTRIBUTION WIDTH 20.1 % (11.7-14.4); WHITE BLOOD COUNT 25.36 x10e3/uL (4.8-10.8)
[2024-02-15 07:14] LABS: ALBUMIN 1.6 g/dL (3.5-5.0); ALBUMIN/GLOBULIN RATIO 0.4 (0.8-2.0); ANION GAP 12.3 mmol/L (8-16); BILIRUBIN,TOTAL 0.7 mg/dL (0.2-1.2); CALCIUM 7.6 mg/dL (8.4-10.2); CREATININE, SERUM 0.71 mg/dL (0.72-1.25); POTASSIUM 4.3 mmol/L (3.5-5.1); TOTAL PROTEIN 5.4 g/dL (6.5-8.1)
[2024-02-15] MEDS: Vancomycin IV 1 GM in SODIUM CHLORIDE 0.9% 250ML 250 ML IV ONE (10:13)
[2024-02-15 11:22] LABS: BAND NEUTROPHILS % (MANUAL) 10 %; HYPOCHROMASIA SLIGHT; LYMPHOCYTES % (MANUAL) 6 % (19-48); NEUTROPHILS % (MANUAL) 84 % (40-74); PLATELET ESTIMATE MODERATELY DECREASED; PLATELET MORPHOLOGY COMMENT NORMAL
[2024-02-15 11:34] LABS: ABG HCO3 26 mmol/L (22-26); ABG PCO2 52 mmHg (35-45); ABG PO2 50 mmHg (80-105); ABG TCO2 27
[2024-02-15] MEDS ORDERED: PREDNISONE 20 MG TAB PO SCH (14:00)
[2024-02-16] VITALS (54 sets, daily range): BP systolic 103–141; BP diastolic 35–47; PULSE 59–86; RESP 19–25; TEMP 98–98.6; O2SAT 98–100
[2024-02-16 06:17] LABS: BASOPHILS % 0.1 % (0.0-1.0); HEMATOCRIT 24.1 % (38.2-49.6); HEMOGLOBIN 7.2 g/dL (14.0-18.0); LYMPHOCYTES # (AUTO) 0.7 (1.0-3.2); LYMPHOCYTES % 3.1 % (18.0-39.1); MEAN CORPUSCULAR HEMOGLOBIN 28.3 pg (28-32); MEAN CORPUSCULAR HGB CONC 29.9 g/dL (31-35); MEAN CORPUSCULAR VOLUME 94.9 fL (81-99); MONOCYTES # (AUTO) 0.6 (0.2-0.8); MONOCYTES % 2.7 % (4.4-11.3); NEUTROPHILS # (AUTO) 19.4 (2.1-6.9); NEUTROPHILS % 91.7 % (38.7-80.0); PLATELET COUNT 84 x10e3/uL (140-360); RED BLOOD COUNT 2.54 x10e6/uL (4.3-5.7); RED CELL DISTRIBUTION WIDTH 20.5 % (11.7-14.4); WHITE BLOOD COUNT 21.13 x10e3/uL (4.8-10.8)
[2024-02-16 09:37] LABS: ALBUMIN 1.5 g/dL (3.5-5.0); ALBUMIN/GLOBULIN RATIO 0.3 (0.8-2.0); ANION GAP 13.4 mmol/L (8-16); BILIRUBIN,TOTAL 0.8 mg/dL (0.2-1.2); CALCIUM 7.8 mg/dL (8.4-10.2); CREATININE, SERUM 0.72 mg/dL (0.72-1.25); TOTAL PROTEIN 5.8 g/dL (6.5-8.1)
[2024-02-16 09:40] LABS: POTASSIUM 5.4 mmol/L (3.5-5.1)
[2024-02-16 10:45] LABS: ABG HCO3 25 mmol/L (22-26); ABG PCO2 44 mmHg (35-45); ABG PH 7.36 (7.35-7.45); ABG PO2 112 mmHg (80-105); ABG TCO2 26
[2024-02-17] VITALS (83 sets, daily range): BP systolic 113–168; BP diastolic 35–64; PULSE 71–96; RESP 15–24; TEMP 99–103.2; O2SAT 94–100
[2024-02-17 06:41] LABS: BASOPHILS % 0.1 % (0.0-1.0); HEMOGLOBIN 7.2 g/dL (14.0-18.0); LYMPHOCYTES # (AUTO) 0.7 (1.0-3.2); LYMPHOCYTES % 2.8 % (18.0-39.1); MEAN CORPUSCULAR HEMOGLOBIN 28.7 pg (28-32); MEAN CORPUSCULAR VOLUME 95.6 fL (81-99); MONOCYTES # (AUTO) 0.7 (0.2-0.8); MONOCYTES % 3.1 % (4.4-11.3); NEUTROPHILS # (AUTO) 21.2 (2.1-6.9); NEUTROPHILS % 91.4 % (38.7-80.0); PLATELET COUNT 97 x10e3/uL (140-360); RED BLOOD COUNT 2.51 x10e6/uL (4.3-5.7); RED CELL DISTRIBUTION WIDTH 21.5 % (11.7-14.4)
[2024-02-17 07:03] LABS: ALBUMIN 1.4 g/dL (3.5-5.0); ALBUMIN/GLOBULIN RATIO 0.3 (0.8-2.0); ANION GAP 14.3 mmol/L (8-16); BILIRUBIN,TOTAL 0.9 mg/dL (0.2-1.2); CALCIUM 7.4 mg/dL (8.4-10.2); CREATININE, SERUM 0.77 mg/dL (0.72-1.25); TOTAL PROTEIN 5.6 g/dL (6.5-8.1)
[2024-02-17 07:12] LABS: POTASSIUM 5.3 mmol/L (3.5-5.1)
[2024-02-17] MEDS: Vancomycin IV 1 GM in SODIUM CHLORIDE 0.9% 250ML 250 ML IV SCH (09:51)
[2024-02-17] MEDS: ACETAMINOPHEN 325 MG TAB PO PRN (10:13)
[2024-02-17 10:33] LABS: ABG HCO3 25 mmol/L (22-26); ABG PCO2 43 mmHg (35-45); ABG PH 7.38 (7.35-7.45); ABG PO2 121 mmHg (80-105); ABG TCO2 26
[2024-02-17 15:35] LABS: ABG PH 7.39 (7.35-7.45)
[2024-02-17 15:36] LABS: ABG HCO3 24 mmol/L (22-26); ABG PCO2 40 mmHg (35-45); ABG PO2 86 mmHg (80-105); ABG TCO2 25
[2024-02-18] VITALS (19 sets, daily range): BP systolic 92–159; BP diastolic 30–56; PULSE 73–89; RESP 17–23; TEMP 99.8; O2SAT 93–98
[2024-02-23 04:39] LABS: ABG HCO3 27 mmol/L (22-26); ABG PCO2 35 mmHg (35-45); ABG PO2 56 mmHg (80-105); ABG TCO2 28
[2024-02-23 04:39] LABS: ABG HCO3 31 mmol/L (22-26); ABG PCO2 52 mmHg (35-45); ABG PH 7.38 (7.35-7.45); ABG PO2 191 mmHg (80-105); ABG TCO2 33
[2024-02-23 04:39] LABS: ABG HCO3 29 mmol/L (22-26); ABG PCO2 52 mmHg (35-45); ABG PH 7.37 (7.35-7.45); ABG PO2 134 mmHg (80-105); ABG TCO2 31
[2024-02-23 04:39] LABS: ABG HCO3 29 mmol/L (22-26); ABG PCO2 50 mmHg (35-45); ABG PH 7.37 (7.35-7.45); ABG PO2 126 mmHg (80-105); ABG TCO2 30
[2024-02-23 04:39] LABS: ABG HCO3 27 mmol/L (22-26); ABG PCO2 38 mmHg (35-45); ABG PH 7.47 (7.35-7.45); ABG PO2 125 mmHg (80-105); ABG TCO2 29
[2024-02-23 04:39] LABS: ABG HCO3 27 mmol/L (22-26); ABG PCO2 53 mmHg (35-45); ABG PH 7.31 (7.35-7.45); ABG PO2 45 mmHg (80-105); ABG TCO2 29
[2024-02-23 04:39] LABS: ABG HCO3 29 mmol/L (22-26); ABG PCO2 44 mmHg (35-45); ABG PH 7.43 (7.35-7.45); ABG PO2 162 mmHg (80-105); ABG TCO2 30
[2024-02-23 04:39] LABS: ABG HCO3 20 mmol/L (22-26); ABG PCO2 42 mmHg (35-45); ABG PH 7.28 (7.35-7.45); ABG PO2 125 mmHg (80-105); ABG TCO2 21
[2024-02-23 04:39] LABS: ABG HCO3 29 mmol/L (22-26); ABG PCO2 40 mmHg (35-45); ABG PH 7.47 (7.35-7.45); ABG PO2 218 mmHg (80-105); ABG TCO2 31
[2024-02-23 04:39] LABS: ABG HCO3 29 mmol/L (22-26); ABG PCO2 41 mmHg (35-45); ABG PH 7.45 (7.35-7.45); ABG PO2 63 mmHg (80-105); ABG TCO2 30
[2024-02-23 04:40] LABS: ABG HCO3 28 mmol/L (22-26); ABG PCO2 49 mmHg (35-45); ABG PH 7.37 (7.35-7.45); ABG PO2 97 mmHg (80-105); ABG TCO2 30
[2024-02-23 04:40] LABS: ABG HCO3 24 mmol/L (22-26); ABG PCO2 40 mmHg (35-45); ABG PH 7.39 (7.35-7.45); ABG PO2 86 mmHg (80-105); ABG TCO2 25
[2024-02-23 04:40] LABS: ABG HCO3 28 mmol/L (22-26); ABG PCO2 35 mmHg (35-45); ABG PH 7.52 (7.35-7.45); ABG PO2 154 mmHg (80-105); ABG TCO2 29
[2024-02-23 04:40] LABS: ABG HCO3 25 mmol/L (22-26); ABG PCO2 44 mmHg (35-45); ABG PH 7.36 (7.35-7.45); ABG PO2 112 mmHg (80-105); ABG TCO2 26
[2024-02-23 04:40] LABS: ABG HCO3 26 mmol/L (22-26); ABG PCO2 52 mmHg (35-45); ABG PO2 50 mmHg (80-105); ABG TCO2 27
[2024-02-23 04:40] LABS: ABG HCO3 25 mmol/L (22-26); ABG PCO2 43 mmHg (35-45); ABG PH 7.38 (7.35-7.45); ABG PO2 121 mmHg (80-105); ABG TCO2 26
== END 2024-02-18 05:33 | disposition short-term general hospital (02) | DRG 207 ==
LOC: ER 12:59 → ERHOLD 17:44 → MED/SURG3 18:20 → ICU 02-05 21:01 → UNDODISIN 02-08 07:10
PROVIDERS: ADMIT Internal Medicine; ATTEND Internal Medicine
PROC: 0W9B3ZZ Drainage of Left Pleural Cavity, Percutaneous Approach (ICD-10-PCS; 2024-02-02)
PROC: 02HV33Z Insertion of Infusion Device into Superior Vena Cava, Percutaneous Approach (ICD-10-PCS; 2024-02-06)
PROC: 5A09457 Assistance with Respiratory Ventilation, 24-96 Consecutive Hours, Continuous Positive Airway Pressure (ICD-10-PCS; 2024-02-06)
PROC: 30233R1 Transfusion of Nonautologous Platelets into Peripheral Vein, Percutaneous Approach (ICD-10-PCS; 2024-02-07)
PROC: 30233N1 Transfusion of Nonautologous Red Blood Cells into Peripheral Vein, Percutaneous Approach (ICD-10-PCS; 2024-02-08)
PROC: 0BH17EZ Insertion of Endotracheal Airway into Trachea, Via Natural or Artificial Opening (ICD-10-PCS; 2024-02-09)
PROC: 03HY32Z Insertion of Monitoring Device into Upper Artery, Percutaneous Approach (ICD-10-PCS; 2024-02-09)
PROC: 3E033XZ Introduction of Vasopressor into Peripheral Vein, Percutaneous Approach (ICD-10-PCS; 2024-02-09)
PROC: 0T9B70Z Drainage of Bladder with Drainage Device, Via Natural or Artificial Opening (ICD-10-PCS; 2024-02-10)
PROC: 5A1955Z Respiratory Ventilation, Greater than 96 Consecutive Hours (ICD-10-PCS; principal; 2024-02-13)
PROC: 0BH17EZ Insertion of Endotracheal Airway into Trachea, Via Natural or Artificial Opening (ICD-10-PCS; 2024-02-13)
PROC: 5A1945Z Respiratory Ventilation, 24-96 Consecutive Hours (ICD-10-PCS; 2024-02-13)
PROC: 02HV33Z Insertion of Infusion Device into Superior Vena Cava, Percutaneous Approach (ICD-10-PCS; 2024-02-15)
DX: C34.90 Malignant neoplasm of unspecified part of unspecified bronchus or lung (principal); I50.23 Acute on chronic systolic (congestive) heart failure; J15.69 Pneumonia due to other Gram-negative bacteria; D61.810 Antineoplastic chemotherapy induced pancytopenia; E43 Unspecified severe protein-calorie malnutrition; J96.01 Acute respiratory failure with hypoxia; I13.0 Hypertensive heart and chronic kidney disease with heart failure and stage 1 through stage 4 chronic kidney disease, or unspecified chronic kidney disease; C79.51 Secondary malignant neoplasm of bone; C78.89 Secondary malignant neoplasm of other digestive organs; C78.7 Secondary malignant neoplasm of liver and intrahepatic bile duct; J98.11 Atelectasis; J91.0 Malignant pleural effusion; E03.9 Hypothyroidism, unspecified; I25.10 Atherosclerotic heart disease of native coronary artery without angina pectoris; Z68.29 Body mass index [BMI] 29.0-29.9, adult; J84.89 Other specified interstitial pulmonary diseases; Z99.81 Dependence on supplemental oxygen; N18.9 Chronic kidney disease, unspecified; I48.0 Paroxysmal atrial fibrillation; Z11.52 Encounter for screening for COVID-19; Z78.1 Physical restraint status; Z66 Do not resuscitate; T45.1X5A Adverse effect of antineoplastic and immunosuppressive drugs, initial encounter; Z79.82 Long term (current) use of aspirin; Z79.01 Long term (current) use of anticoagulants; Z79.899 Other long term (current) drug therapy; Z79.890 Hormone replacement therapy; Z90.49 Acquired absence of other specified parts of digestive tract; Z95.810 Presence of automatic (implantable) cardiac defibrillator; Z95.1 Presence of aortocoronary bypass graft; Z88.0 Allergy status to penicillin; Z87.891 Personal history of nicotine dependence
CPT/HCPCS: 32555; 36415; 36569; 36600; 71045; 71260; 74018; 74470; 76700; 80048; 80053; 82040; 82607; 82728; 82746; 82805; 83540; 83605; 83615; 83735; 83880; 84100; 84157; 84466; 84484; 85007; 85025; 85027; 85045; 85379; 85384; 85610; 85730; 86850; 86900; 86920; 87040; 87070; 87186; 87205; 88112; 88305; 89051; 93005; 93306; 94002; 94003; 94640; 94660; 94799; 99252; 99284; C1729; J0330; J0692; J1940; J2060; J2470; J2919; J3480; J7030; J7040; J7050; J7070; J7512; P9016; P9034; P9047; Q9967; U0002